=== PATIENT | female | born 1945 | race American Indian/Alaskan Native ===

== ENCOUNTER 2017-02-04 05:39 | Day surgery (SDC) | payer MEDICARE ==
[2017-02-04] MEDS ORDERED: NACL 0.9% 1000 ML 1,000 ML IV SCH (06:00)
[2017-02-04] MEDS ORDERED: ANCEF/STERILE WATER 2 GM/20 ML 2 GM/20 ML SYRINGE IV NR (06:00)
[2017-02-04] MEDS ORDERED: NACL BACTERIOSTATIC INFILTRATI ONE (06:48)
[2017-02-04 07:11] LABS: Hematocrit 34.2 % (30.3-42.9); Hemoglobin 11.2 gm/dl (10.1-14.3); Mean Corpuscular HGB Conc 33 % (30-34); Mean Corpuscular Hemoglobin 29 pg (28-32); Mean Corpuscular Volume 90 fl (79-97); Platelet Count 189 K/mm3 (140-440); Red Blood Count 3.81 M/mm3 (3.65-5.03); Red Cell Distribution Width 13.6 % (13.2-15.2); White Blood Count 3.9 K/mm3 (4.5-11.0)
--- NOTE | 2017-02-04 07:11 | Anesthesia Day of Surgery ---
Anesthesia Day of Surgery - Day of Surgery Patient Examined: Yes Patient H&P Reviewed: Yes Patient is NPO: Yes Beta Blockers: Yes
--- NOTE | 2017-02-04 07:13 | Anesthesia Consultation ---
Anesthesia Consult and Med Hx Date of service: 02/04/17 - Airway Anesthetic Teeth Evaluation: Poor (missing a few on bottom and top molars) ROM Head & Neck: Adequate Mental/Hyoid Distance: Adequate Mallampati Class: Class II Intubation Access Assessment: Probably Good - Pulmonary Exam CTA: Yes - Cardiac Exam Cardiac Exam: RRR - Pre-Operative Health Status ASA Pre-Surgery Classification: ASA3 Proposed Anesthetic Plan: General - Pulmonary Hx Smoking: No Hx Asthma: Yes ( YOUNG ADULT- NO PROBLEMS NOW) Hx Sleep Apnea: No (SRINIVAS PRE SCREEN HIGH RISK) - Cardiovascular System Hx Hypertension: Yes Hx Coronary Artery Disease: Yes Hx Heart Attack/AMI: Yes (stents placed in 2011) Hx Peripheral Vascular Disease: Yes - Central Nervous System Hx Back Pain: Yes - Endocrine Hx Non-Insulin Dependent Diabetes: No - Hematic Hx Anemia: Yes - Other Systems Hx Cancer: No - Additional Comments Anesthesia Medical History Comments: nonhealing R leg wound
[2017-02-04] MEDS ORDERED: PEPCID IV NR (07:14)
[2017-02-04] MEDS ORDERED: VERSED IV NR (07:17)
[2017-02-04 07:21] LABS: INR 1.03 (0.87-1.13)
[2017-02-04 07:27] LABS: Anion Gap 13 mmol/L; BUN/Creatinine Ratio 32; Blood Urea Nitrogen 16 mg/dL (7-17); Calcium 9.1 mg/dL (8.4-10.2); Carbon Dioxide 28 mmol/L (22-30); Chloride 101.7 mmol/L (98-107); Glucose 100 mg/dL (65-100); Potassium 4.2 mmol/L (3.6-5.0); Sodium 138 mmol/L (137-145)
[2017-02-04] MEDS ORDERED: DILAUDID IV PRN (07:44)
[2017-02-04 08:02] LABS: Blastocytes % (Manual) 0 %; RBC Morphology Normal
[2017-02-04 08:03] LABS: Diff Status Complete; Platelet Estimate Consistent w Auto
[2017-02-04] MEDS ORDERED: XYLOCAINE MPF 2% ONE (08:05)
[2017-02-04] MEDS ORDERED: DIPRIVAN 10 MG/ML IV ONE (08:05)
[2017-02-04] MEDS ORDERED: DECADRON ONE (08:09)
[2017-02-04] MEDS ORDERED: ZOFRAN ONE (08:09)
[2017-02-04] MEDS ORDERED: ZOFRAN IV PRN (08:10)
[2017-02-04] MEDS ORDERED: DILAUDID ONE (08:12)
--- NOTE | 2017-02-04 09:00 | Operative Report ---
Operative Report Operative Report: Operative note: Date: 02/04/2017 Preoperative diagnosis: Right leg wound dehiscence Postoperative diagnosis: Same. Operation: Excisional debridement of right leg wound Surgeon: Kristie Gaitan. Asst.: None Anesthesia: Gen. EBL: Minimal Findings: Black eschar over right anterior garrison wound, foul smelling Indications: 72-year-old female came with wound dehiscence after He Fell on Her Leg and Was Sutured in the Emergency Room. After Removing Stitches Her Wound Is Used and Developed Black Eschar. Patient Was Explained Risks and Benefits of Procedure and Chose to Proceed, Signed Informed Consent. Operative details: Patient was brought to the operating room and placed in supine position, her right leg was prepped and draped in sterile fashion. Timeout performed. Right leg was debrided using curved Rocha scissors and pickups. IBlack eschar and underlying tissue were excised. Cultures were sent. Wound was copiously irrigated with saline. The VAC with black foam was applied. Patient tolerates procedure well and was transferred to PACU in stable condition.
--- NOTE | 2017-02-04 09:04 | Short Stay Summary ---
Short Stay Documentation Date of service: 02/04/17 - History H&P: obtained from office - Allergies and Medications Current Medications: Allergies ketorolac tromethamine [From Toradol] Allergy (Verified 01/30/17 17:22) Itching tramadol Allergy (Verified 01/30/17 17:22) Itching Home Medications Medication Instructions Recorded Confirmed Last Taken Type Losartan/Hydrochlorothiazide 1 each PO QDAY 07/02/15 02/04/17 02/04/17 History [Hyzaar 100-12.5 TAB] Metoprolol [Lopressor TAB] 25 mg PO DAILY 07/02/15 02/04/17 02/04/17 History Aspirin [Adult Low Dose Aspirin EC] 81 mg PO DAILY 01/30/17 02/04/17 01/28/17 History HYDROcodone/APAP 5-325 [[place] 1 each PO Q6HR PRN 01/30/17 02/04/17 02/03/17 History 5/325] Active Medications Famotidine (Pepcid) 20 mg IV PREOP NR Stop: 02/04/17 23:00 Last Admin: 02/04/17 07:26 Dose: 20 mg Hydromorphone HCl (Dilaudid) 0.5 mg IV Q10MIN PRN PRN Reason: Pain , Severe (7-10) Stop: 02/04/17 12:00 Cefazolin Sodium (Ancef/Sterile Water 2 Gm/20 Ml) 2 gm in 20 mls @ 80 mls/hr IV PREOP NR PRN Reason: Protocol Stop: 02/04/17 21:00 Sodium Chloride (Nacl 0.9% 1000 Ml) 1,000 mls @ 42 mls/hr IV DIRECT RACQUEL Last Admin: 02/04/17 07:00 Dose: 42 mls/hr Midazolam HCl (Versed) 1 mg IV PREOP NR Stop: 02/04/17 18:00 Last Admin: 02/04/17 07:29 Dose: 1 mg - Physical exam Extremities: abnormal (right anterior garrison with large wound covered with black eschar) - Brief post op/procedure progress note Date of procedure: 02/04/17 Pre-op diagnosis: right leg wound Post-op diagnosis: same Procedure: She has no debridement of right anterior leg wound Anesthesia: GETA Findings: Black eschar over right leg wound dehiscence Surgeon: KAILEY KATZ Estimated blood loss: minimal Specimen disposition: to lab Condition: stable - Hospital course Hospital course: Patient will state Road today and go home with pain controlled - Disposition Condition at discharge: Good Disposition: DC-01 TO HOME OR SELFCARE Short Stay Discharge Plan Diet: regular Wound: per wound nurse instructions Follow up with: PRIMARY CAREMD [Primary Care Provider] - 7 Days KAILEY KATZ DO [Staff Physician] - 14 Days
--- NOTE | 2017-02-04 09:33 | Post Anesthesia Evaluation ---
- Post Anesthesia Evaluation Patient Participated: Yes Airway Patent: Yes Stable Respiratory Function: Yes Nausea/Vomiting: No Temp > 96.8F: Yes Pain Manageable: Yes Adequeate Hydration: Yes Anesthesia Complications: No Block Receding Appropriately: Not Applicable Patient on Ventilator: No
[2017-02-04] MEDS ORDERED: APRESOLINE IV PRN (09:38)
[2017-02-04] MEDS ORDERED: ZOFRAN IV ONE (10:46)
[2017-02-04] MEDS ORDERED: REGLAN IV ONE (10:46)
[2017-02-04] MEDS ORDERED: NORCO 5/325 PO ONE ×2 (11:03→14:39)
[2017-02-04] MEDS ORDERED: TRANSDERM-SCOP TD NR (14:38)
[2017-02-04 16:51] VITALS: BP 131/80
== END 2017-02-04 16:50 | disposition home or self-care (01) ==
LOC: OR 05:39
PROVIDERS: ATTEND Surgery Vascular Surgery
DX: T81.30XA Disruption of wound, unspecified, initial encounter (principal); Y83.8 Other surgical procedures as the cause of abnormal reaction of the patient, or of later complication, without mention of misadventure at the time of the procedure; I10 Essential (primary) hypertension; I73.9 Peripheral vascular disease, unspecified; I25.2 Old myocardial infarction; I25.10 Atherosclerotic heart disease of native coronary artery without angina pectoris; D64.9 Anemia, unspecified; J45.909 Unspecified asthma, uncomplicated; Z90.710 Acquired absence of both cervix and uterus; Z98.890 Other specified postprocedural states; Z95.5 Presence of coronary angioplasty implant and graft
CPT/HCPCS: 11042; 36415; 80048; 85007; 85025; 85610; 87075; 87116; 88304; J0360; J0690; J1100; J1170; J2250; J2405; J2704; J2765; J7030; 87076; 87186

== ENCOUNTER 2017-03-27 16:51 | Emergency (ER) | payer MEDICARE ==
[2017-03-27 19:14] VITALS: BP 161/66
[2017-03-27 19:36] LABS: Basophils % (Auto) 0.7 % (0.0-1.8); Eosinophils % (Auto) 2.9 % (0.0-4.3); Hematocrit 33.2 % (30.3-42.9); Hemoglobin 11.1 gm/dl (10.1-14.3); Mean Corpuscular HGB Conc 33 % (30-34); Mean Corpuscular Hemoglobin 30 pg (28-32); Mean Corpuscular Volume 89 fl (79-97); Platelet Count 179 K/mm3 (140-440); Red Blood Count 3.75 M/mm3 (3.65-5.03); Red Cell Distribution Width 13.1 % (13.2-15.2); White Blood Count 4.8 K/mm3 (4.5-11.0)
[2017-03-27 19:51] LABS: Alanine Aminotransferase 11 units/L (7-56); Albumin 3.5 g/dL (3.9-5); Albumin/Globulin Ratio 0.9 %; Alkaline Phosphatase 69 units/L (35-129); Anion Gap 16 mmol/L; BUN/Creatinine Ratio 18; Blood Urea Nitrogen 9 mg/dL (7-17); Calcium 8.8 mg/dL (8.4-10.2); Carbon Dioxide 24 mmol/L (22-30); Chloride 101.6 mmol/L (98-107); Glucose 103 mg/dL (65-100); Potassium 3.7 mmol/L (3.6-5.0); Sodium 138 mmol/L (137-145); Total Protein 7.3 g/dL (6.3-8.2)
[2017-03-27] MEDS ORDERED: LOVENOX SUB-Q ONE (20:24)
[2017-03-27] MEDS ORDERED: cefTRIAXone 1 GM in NACL 0.9% 20 ML IV ONE (20:26)
[2017-03-27] MEDS ORDERED: MORPHINE IV ONE (20:36)
--- NOTE | 2017-03-27 20:59 | Emergency Department Report ---
ED Extremity Problem HPI - General Chief complaint: Extremity Injury, Lower Stated complaint: RIGHT LEG AND CHEST PAIN Time Seen by Provider: 03/27/17 19:00 Source: patient Mode of arrival: Stretcher Limitations: No Limitations - History of Present Illness Initial comments: Patient with right lower extremity pain that was much more dramatic today. Patient had a traumatic injury to the leg in November and has had a wound vac. With the acute pain she was sent here. No SOB. She does have 2 nieces that have from blood clots. She is not on hormones and does not use nicotine. Her skin is newly red around the wound. MD Complaint: extremity pain, extremity swelling -: Sudden Location: right, lower extremity History of Same: No -: Yes myalgia Radiation: none Severity scale (0 -10): 8 Quality: burning, stabbing Consistency: constant, intermittent Improves with: nothing Worsens with: weight bearing Associated Symptoms: denies other symptoms - Related Data Home Medications Medication Instructions Recorded Confirmed Last Taken Losartan/Hydrochlorothiazide 1 each PO QDAY 07/02/15 02/04/17 02/04/17 [Hyzaar 100-12.5 TAB] Metoprolol [Lopressor TAB] 25 mg PO DAILY 07/02/15 02/04/17 02/04/17 Aspirin [Adult Low Dose Aspirin EC] 81 mg PO DAILY 01/30/17 02/04/17 01/28/17 HYDROcodone/APAP 5-325 [[place] 1 each PO Q6HR PRN 01/30/17 02/04/17 02/03/17 5-325 mg TAB] Previous Rx's Medication Instructions Recorded Last Taken Type Acidoph/L.bulg/Bif.b/S.thermop 1 each PO DAILY #30 tablet 02/04/17 Unknown Rx [Bacid Caplet] Clindamycin [Clindamycin CAP] 300 mg PO Q6H #28 capsule 02/04/17 Unknown Rx Acetaminophen/Codeine [Tylenol 1 tab PO Q6H PRN #12 tab 03/27/17 Unknown Rx /Codeine # 3 tab] Cephalexin [Keflex] 500 mg PO Q8HR 10 Days #30 cap 03/27/17 Unknown Rx Ondansetron [Zofran TAB] 4 mg PO Q8HR PRN #30 tablet 03/27/17 Unknown Rx Allergies Allergy/AdvReac Type Severity Reaction Status Date / Time ketorolac tromethamine Allergy Itching Verified 03/27/17 17:44 [From Toradol] tramadol Allergy Itching Verified 03/27/17 17:44 ED Review of Systems ROS: Stated complaint: RIGHT LEG AND CHEST PAIN Other details as noted in HPI Constitutional: denies: chills, fever Eyes: denies: eye pain, eye discharge, vision change ENT: denies: ear pain, throat pain Respiratory: denies: cough, shortness of breath, wheezing Cardiovascular: denies: chest pain, palpitations Endocrine: no symptoms reported Gastrointestinal: denies: abdominal pain, nausea, diarrhea Genitourinary: denies: urgency, dysuria, discharge Musculoskeletal: denies: back pain, joint swelling, arthralgia Skin: denies: rash, lesions Neurological: denies: headache, weakness, paresthesias Psychiatric: denies: anxiety, depression Hematological/Lymphatic: denies: easy bleeding, easy bruising ED Past Medical Hx - Past Medical History Hx Hypertension: Yes Hx Heart Attack/AMI: Yes (stents placed in 2011) Hx Asthma: Yes ( YOUNG ADULT- NO PROBLEMS NOW) - Surgical History Hx Coronary Stent: Yes (2011) Additional Surgical History: Stent placement 2012 - Social History Smoking Status: Never Smoker Substance Use Type: None - Medications Home Medications: Home Medications Medication Instructions Recorded Confirmed Last Taken Type Losartan/Hydrochlorothiazide 1 each PO QDAY 07/02/15 02/04/17 02/04/17 History [Hyzaar 100-12.5 TAB] Metoprolol [Lopressor TAB] 25 mg PO DAILY 07/02/15 02/04/17 02/04/17 History Aspirin [Adult Low Dose Aspirin EC] 81 mg PO DAILY 01/30/17 02/04/17 01/28/17 History HYDROcodone/APAP 5-325 [[place] 1 each PO Q6HR PRN 01/30/17 02/04/17 02/03/17 History 5-325 mg TAB] Acidoph/L.bulg/Bif.b/S.thermop 1 each PO DAILY #30 tablet 02/04/17 Unknown Rx [Bacid Caplet] Clindamycin [Clindamycin CAP] 300 mg PO Q6H #28 capsule 02/04/17 Unknown Rx Acetaminophen/Codeine [Tylenol 1 tab PO Q6H PRN #12 tab 03/27/17 Unknown Rx /Codeine # 3 tab] Cephalexin [Keflex] 500 mg PO Q8HR 10 Days #30 cap 03/27/17 Unknown Rx Ondansetron [Zofran TAB] 4 mg PO Q8HR PRN #30 tablet 03/27/17 Unknown Rx ED Physical Exam - General Limitations: No Limitations General appearance: alert, in no apparent distress - Head Head exam: Present: atraumatic, normocephalic - Eye Eye exam: Present: normal appearance - ENT ENT exam: Present: mucous membranes moist - Neck Neck exam: Present: normal inspection - Respiratory Respiratory exam: Present: normal lung sounds bilaterally. Absent: respiratory distress - Cardiovascular Cardiovascular Exam: Present: regular rate, normal rhythm. Absent: systolic murmur, diastolic murmur, rubs, gallop - GI/Abdominal GI/Abdominal exam: Present: soft, normal bowel sounds - Extremities Exam Extremities exam: Present: normal inspection, tenderness (right calf and around the wound. Dressing is clean dry and intact.) - Back Exam Back exam: Present: normal inspection - Neurological Exam Neurological exam: Present: alert, oriented X3 - Psychiatric Psychiatric exam: Present: normal affect, normal mood - Skin Skin exam: Present: warm, dry, intact, normal color, erythema (around the wound and up to the tibial tuberosity. Patient reports new.). Absent: rash ED Course Vital Signs 03/27/17 03/27/17 03/27/17 17:39 17:44 17:45 Temperature 97.9 F Pulse Rate 78 75 78 Respiratory 11 L 18 11 L Rate Blood Pressure 157/93 193/89 O2 Sat by Pulse 100 98 Oximetry 03/27/17 03/27/17 03/27/17 18:01 18:15 18:30 Temperature Pulse Rate 80 75 73 Respiratory 17 20 18 Rate Blood Pressure 153/62 150/58 148/63 O2 Sat by Pulse 96 97 98 Oximetry 03/27/17 03/27/17 18:45 19:01 Temperature Pulse Rate 72 65 Respiratory 21 15 Rate Blood Pressure 163/75 161/66 O2 Sat by Pulse 98 100 Oximetry ED Medical Decision Making - Lab Data Result diagrams: 03/27/17 18:52 03/27/17 18:52 Low albumin but otherwise unremarkable. - EKG Data EKG shows normal: sinus rhythm, axis, intervals, QRS complexes (AL greater than 220.), ST-T waves Rate: normal - EKG Data Interpretation: no acute changes - Medical Decision Making Patient with cellulitis and will get rocephin 1 gm. She will be placed on keflex 500 mg tid x 10 days. We will give her some pain meds for the leg pain. She will have an US tomorrow with lovenox shot tonight for possible DVT. Clinically it is less likely DVT but with onset and family history, we will treat as such until US can be done tomorrow outpatient. She has been encouraged to eat more protein to help with wound healing and her low albumin. Critical care attestation.: If time is entered above; I have spent that time in minutes in the direct care of this critically ill patient, excluding procedure time. ED Disposition Clinical Impression: Cellulitis of right lower extremity, Leg pain, right, Hypoalbuminemia Disposition: TO HOME OR SELFCARE Is pt being admited?: No Does the pt Need Aspirin: No Condition: Good Instructions: Cellulitis (ED), Leg Edema (ED) Additional Instructions: Please call tomorrow am for your scheduled US. Prescriptions: Acetaminophen/Codeine [Tylenol /Codeine # 3 tab] 1 tab PO Q6H PRN #12 tab PRN Reason: Pain, Moderate (4-6) Cephalexin [Keflex] 500 mg PO Q8HR 10 Days #30 cap Ondansetron [Zofran TAB] 4 mg PO Q8HR PRN #30 tablet PRN Reason: Nausea Referrals: LISA HERNANDEZ MD [Referring] - 3-5 Days Time of Disposition: 21:12
== END 2017-03-27 21:43 | disposition home or self-care (01) ==
LOC: ED 16:51
DX: L03.115 Cellulitis of right lower limb (principal); E88.09 Other disorders of plasma-protein metabolism, not elsewhere classified; M79.604 Pain in right leg
CPT/HCPCS: 36415; 80053; 82140; 85025; 87040; 93005; 93010; 96372; 96374; 96375; 99283; J0696; J1650; J2270

== ENCOUNTER 2017-03-29 08:08 | Outpatient (CLI) | payer MEDICARE | END 2017-03-29 08:09 | disposition home or self-care (01) | LOC: VAS 08:08 | PROVIDERS: ATTEND Family Medicine | DX: M79.661 Pain in right lower leg (principal); M79.89 Other specified soft tissue disorders ==